=== PATIENT | female | born 1965 | race Caucasian/White ===

== ENCOUNTER 2023-02-08 14:11 | Outpatient (CLI) | payer OTHER ==
[2023-02-08 15:02] LABS: ALT (SGPT) 45 U/L (8-55); AST (SGOT) 29 U/L (5-34); Alkaline Phosphatase 73 U/L (40-110); Anion Gap 13 mmol/L (10-20); BUN (Urea Nitrogen) 16 mg/dL (9.8-20.1); Bilirubin, Total 0.7 mg/dL (0.2-1.2); Calc. Creatinine Clearance 0 mL/min (70-130); Calcium 9.4 mg/dL (7.8-10.44); Carbon Dioxide 25 mmol/L (22-29); Chloride 108 mmol/L (98-107); Estimated GFR 50; Globulin 2.1 g/dL (2.4-3.5); Glucose 93 mg/dL (70-105); Potassium 4.2 mmol/L (3.5-5.1); Protein, Total 6.1 g/dL (6.0-8.3); Sodium 142 mmol/L (136-145)
== END 2023-02-08 14:12 | disposition home or self-care (01) ==
LOC: NAV RAD 14:11
PROVIDERS: ATTEND Family Medicine
DX: M25.561 Pain in right knee (principal); M25.562 Pain in left knee; M51.16 Intervertebral disc disorders with radiculopathy, lumbar region; N20.9 Urinary calculus, unspecified; M41.9 Scoliosis, unspecified; M47.26 Other spondylosis with radiculopathy, lumbar region; Z87.448 Personal history of other diseases of urinary system
CPT/HCPCS: 36415; 72100; 80053